=== PATIENT | female | born 1975 | race Caucasian/White ===

== ENCOUNTER 2017-05-07 14:25 | Emergency (ER) | payer MEDICAID, OTHER ==
[~2017-05-07] VITALS: Ht 157.5 cm; Wt 79.0 kg
[2017-05-07 14:32] VITALS: Ht 157.5 cm; Wt 79.0 kg
[2017-05-07] MEDS ORDERED: KETOROLAC 30 MG INJ IV STA (14:49)
[2017-05-07] MEDS ORDERED: ONDANSETRON 4 MG INJ IV STA (14:49)
[2017-05-07] MEDS ORDERED: SOD CHLORIDE 0.9% 1,000 ML IV STA (14:49)
[2017-05-07 15:07] LABS: ADD SCAN DIFF NO
[2017-05-07 15:13] LABS: BASOPHILS % 0.4 % (0.0-2.0); EOSINOPHILS # 0.2 10^3/ul (0.0-0.5); EOSINOPHILS % 3.4 % (0.0-7.0); HEMATOCRIT 35.4 % (37.0-47.0); LYMPHOCYTES # 2.7 10^3/ul (0.8-2.9); LYMPHOCYTES % 38.1 % (15.0-51.0); MEAN CORPUSCULAR HEMOGLOBIN 29.9 pg (29.0-33.0); MEAN CORPUSCULAR HGB CONC 33.9 g/dl (32.0-37.0); MEAN CORPUSCULAR VOLUME 88.1 fl (82.0-101.0); MEAN PLATELET VOLUME 9.9 fl (7.4-10.4); MONOCYTE # 0.6 10^3/ul (0.3-0.9); MONOCYTES % 8.3 % (0.0-11.0); NEUTROPHIL # 3.4 10^3/ul (1.6-7.5); NEUTROPHILS % 49.4 % (39.0-77.0); PLATELET COUNT 253 10^3/UL (140-415); RED BLOOD COUNT 4.02 10^6/ul (4.20-5.40); RED CELL DISTRIBUTION WIDTH 13.3 % (11.5-14.5)
--- NOTE | 2017-05-07 15:32 | RADRPT ---
PROCEDURE: Right upper quadrant abdominal ultrasound. CLINICAL INDICATION: Abdominal pain. TECHNIQUE: Multiple real-time longitudinal and transverse images of the right upper quadrant of th e abdomen were acquired utilizing a curved array transducer. Images were reviewed on a high-resoluti on PACS workstation. COMPARISON: None available. FINDINGS: There is normal size and echogenicity of the liver with no focal mass lesion identified . There is h epatopedal flow within the main portal vein. There is no gallbladder wall thickening, cholelithiasis , or pericholecystic fluid. There is no intra or extrahepatic biliary ductal dilatation. The common bile duct measures 2.6 mm in maximal dimension. The visualized portions of the pancreas are unremar kable. No free fluid is identified. The right kidney measures 10.3 cm in length and demonstrates normal echogenicity. There is a 2.3 cm cyst at the midportion of the right kidney. A smaller cyst is also seen at the upper pole right kid mann. There is no hydronephrosis, nephrolithiasis, or renal mass. IMPRESSION: 1. Unremarkable right upper quadrant ultrasound. A source of the patient's pain is not identified. 2. Benign right renal cysts. RPTAT: GG .Bryan Alexander MD, Date Time Electronically viewed and signed by .Bryan Alexander MD, MD on 05/07/2017 15:31 .P/
[2017-05-07 15:37] LABS: ADD UMIC YES; UR ASCORBIC ACID NEGATIVE (NEGATIVE); UR BACTERIA FEW /HPF (NONE SEEN); UR BILIRUBIN (Dip) NEGATIVE (NEGATIVE); UR BLOOD (Dip) 1+ mg/dL (NEGATIVE); UR CLARITY CLEAR (CLEAR); UR COLOR COLORLESS (YELLOW); UR GLUCOSE (Dip) NEGATIVE (NEGATIVE); UR KETONES (Dip) NEGATIVE (NEGATIVE); UR LEUKOCYTE ESTERASE (Dip) 1+ Leu/ul (NEGATIVE); UR NITRITE (Dip) NEGATIVE (NEGATIVE); UR RBC 1 /HPF (0-5); UR SPECIFIC GRAVITY (Dip) 1.004 (1.003-1.030); UR SQUAMOUS EPITHELIAL CELL FEW /HPF (FEW); UR TOTAL PROTEIN (Dip) NEGATIVE (NEGATIVE); UR UROBILINOGEN (Dip) NEGATIVE (NEGATIVE)
--- NOTE | 2017-05-07 15:48 | ERD ---
ER Documentation Chief Complaint Date/Time DATE: 05/07/17 TIME: 15:45 Chief Complaint ap x 2 days HPI Patient is a 41-year-old female presents emergency department with right sided abdominal pain 2 days. Patient states pain was initially intermittent nature however now it has become constant and sharp. Patient reports nausea however she denies any vomiting. She admits to chills however she denies any fevers. Patient denies any dysuria, frequency, hematuria, flank pain, rectal bleeding or diarrhea. Last menstrual period was on April 17, 2017. Last bowel movement was yesterday. Patient states she last ate this morning, a slice of bread. ROS All systems reviewed and are negative except as per history of present illness. Medications Home Meds Active Scripts Hydrocodone/Acetaminophen (Mclain 5-325 Tablet) 1 Each Tablet, 1 TAB PO Q6H Y for PAIN, #7 TAB Prov:BHAVANA HERRMANN PA-C 05/07/17 Ibuprofen* (Motrin*) 600 Mg Tab, 600 MG PO Q6, #20 TAB Prov:BHAVANA HERRMANN PA-C 05/07/17 Metronidazole* (Flagyl*) 500 Mg Tablet, 500 MG PO TID for 10 Days, TAB Prov:HBAVANA HERRMANN PA-C 05/07/17 Ciprofloxacin Hcl* (Ciprofloxacin Hcl*) 500 Mg Tablet, 500 MG PO BID for 10 Days , TAB Prov:BHAVANA HERRMANN PA-C 05/07/17 PMhx/Soc Medical and Surgical Hx: pt denies Medical Hx, pt denies Surgical Hx Hx Alcohol Use: No Hx Substance Use: No Hx Tobacco Use: No Smoking Status: Never smoker FmHx Family History: No diabetes Physical Exam Vitals Vital Signs Date Time Temp Pulse Resp B/P Pulse Ox O2 Delivery O2 Flow Rate FiO2 05/07/17 14:32 98.1 70 18 111/70 99 Physical Exam GENERAL: Well-developed, well-nourished female. Appears in no acute distress. HEAD: Normocephalic, atraumatic. EYES: Pupils are equally reactive bilaterally. EOMs grossly intact. No conjunctival erythema. ENT: Moist mucous membranes. No uvula deviation. No kissing tonsils. NECK: Supple. No meningismus. Normal range of motion of the neck. LUNG: Clear to auscultation bilaterally. No rhonchi, wheezing, rales or coarse breath sounds. HEART: Regular rate and rhythm. No murmurs, rubs or gallops. ABDOMEN: Soft and nondistended. Tender to palpation of the right upper quadrant and right lower quadrant. Positive guarding. Positive bowel sounds in all four quadrants. (-) McBurney's point tenderness. No CVA tenderness. BACK: No midline tenderness. EXTREMITIES: Equal pulses bilaterally. No peripheral clubbing, cyanosis or edema. No unilateral leg swelling. NEUROLOGIC: Alert and oriented. Moving all four extremities without any difficulty. Normal speech. Steady gait. SKIN: Normal color. Warm and dry. No rashes or lesions. Result Diagram: 05/07/17 1500 05/07/17 1500 Results 24 hrs Laboratory Tests Test 05/07/17 15:00 White Blood Count 7.010^3/ul Red Blood Count 4.0210^6/ul Hemoglobin 12.0g/dl Hematocrit 35.4% Mean Corpuscular Volume 88.1fl Mean Corpuscular Hemoglobin 29.9pg Mean Corpuscular Hemoglobin Concent 33.9g/dl Red Cell Distribution Width 13.3% Platelet Count 86840^3/UL Mean Platelet Volume 9.9fl Neutrophils % 49.4% Lymphocytes % 38.1% Monocytes % 8.3% Eosinophils % 3.4% Basophils % 0.4% Nucleated Red Blood Cells % 0.0/100WBC Neutrophils # 3.410^3/ul Lymphocytes # 2.710^3/ul Monocytes # 0.610^3/ul Eosinophils # 0.210^3/ul Basophils # 0.010^3/ul Nucleated Red Blood Cells # 0.010^3/ul Urine Color COLORLESS Urine Clarity CLEAR Urine pH 6.0 Urine Specific Kiana 1.004 Urine Ketones NEGATIVEmg/dL Urine Nitrite NEGATIVEmg/dL Urine Bilirubin NEGATIVEmg/dL Urine Urobilinogen NEGATIVEmg/dL Urine Leukocyte Esterase 1+Galen/ul Urine Microscopic RBC 1/HPF Urine Microscopic WBC 1/HPF Urine Squamous Epithelial Cells FEW/HPF Urine Bacteria FEW/HPF Urine Hemoglobin 1+mg/dL Urine Glucose NEGATIVEmg/dL Urine Total Protein NEGATIVEmg/dl Sodium Level 142mmol/L Potassium Level 4.0mmol/L Chloride Level 103mmol/L Carbon Dioxide Level 25mmol/L Anion Gap 18 Blood Urea Nitrogen 11mg/dl Creatinine 0.64mg/dl Glucose Level 86mg/dl Calcium Level 9.5mg/dl Total Bilirubin 0.1mg/dl Direct Bilirubin 0.00mg/dl Indirect Bilirubin 0.1mg/dl Aspartate Amino Transf (AST/SGOT) 22IU/L Alanine Aminotransferase (ALT/SGPT) 26IU/L Alkaline Phosphatase 85IU/L Total Protein 8.1g/dl Albumin 4.3g/dl Globulin 3.80g/dl Albumin/Globulin Ratio 1.13 Lipase 48U/L Current Medications Medications (Trade) Dose Ordered Sig/Darryn Route PRN Reason Start Time Stop Time Status Last Admin Dose Admin Sodium Chloride (NS) 1,000 ml @ 1,000 mls/hr Q1H STAT IV 05/07/17 14:49 05/07/17 15:48 DC 05/07/17 15:23 Ondansetron HCl (Zofran Inj) 4 mg ONCE STAT IV 05/07/17 14:49 05/07/17 14:52 DC 05/07/17 15:22 Ketorolac Tromethamine (Toradol) 30 mg ONCE STAT IV 05/07/17 14:49 05/07/17 14:52 DC 05/07/17 15:22 Procedures/MDM ED COURSE: The patient was stable throughout ED course. I kept the patient and/or family informed of laboratory and diagnostic imaging results throughout the ED course. DIAGNOSTIC IMAGING: Read by radiologist. Patient: RHETT JOYCE : 1975 Age: 41 Sex: F MR #: [id number] DOS: 05/07/17 1449 Ordering MD: BHAVANA HERRMANN PA-C Location: [facility] Room/Bed: PROCEDURE: Right upper quadrant abdominal ultrasound. CLINICAL INDICATION: Abdominal pain. TECHNIQUE: Multiple real-time longitudinal and transverse images of the right upper quadrant of the abdomen were acquired utilizing a curved array transducer. Images were reviewed on a high-resolution PACS workstation. COMPARISON: None available. FINDINGS: There is normal size and echogenicity of the liver with no focal mass lesion identified . There is hepatopedal flow within the main portal vein. There is no gallbladder wall thickening, cholelithiasis, or pericholecystic fluid. There is no intra or extrahepatic biliary ductal dilatation. The common bile duct measures 2.6 mm in maximal dimension. The visualized portions of the pancreas are unremarkable. No free fluid is identified. The right kidney measures 10.3 cm in length and demonstrates normal echogenicity. There is a 2.3 cm cyst at the midportion of the right kidney. A smaller cyst is also seen at the upper pole right kidney. There is no hydronephrosis, nephrolithiasis, or renal mass. IMPRESSION: 1. Unremarkable right upper quadrant ultrasound. A source of the patient's pain is not identified. 2. Benign right renal cysts. RPTAT: GG .Bryan Alexander MD, MD Date Time Electronically viewed and signed by .Bryan Alexander MD, MD on 05/07/2017 15:31 .P/ CC: BHAVANA HERRMANN PA-C Patient: RHETT JOYCE : 1975 Age: 41 Sex: F MR #: [id number] DOS: 05/07/17 1449 Ordering MD: BHAVANA HERRMANN PA-C Location: [facility] Room/Bed: PROCEDURE: CT abdomen and pelvis without IV contrast. CLINICAL INDICATION: Abdominal pain TECHNIQUE: CT scan of the abdomen and pelvis without contrast was performed on the [employer] volumetric [address] scanner. The patient was scanned without intravenous contrast. Coronal and sagittal reformatted images were obtained from the axial source images. The CTDI vol is 8.92 mGy and the DLP is 520.75 mGy -cm. COMPARISON: None. FINDINGS: CT abdomen: Mild dependent changes in the lung bases is seen. The remaining lung bases are clear. The heart size is not enlarged and is without pericardial thickening or effusion. The liver is normal in size and density and is without focal mass or intrahepatic biliary dilatation. The spleen is normal in size and homogeneous in density. The stomach is grossly unremarkable. The pancreas as visualized is normal. The gallbladder and biliary tree are unremarkable and there is no evidence for common bile duct dilatation. The adrenal glands are symmetric and normal. The kidneys are symmetrically unremarkable as well. Bilateral renal cysts are seen. 4 mm nonobstructing calculus is seen in the mid right kidney. No other renal calculus or obstructive uropathy or mass lesion is seen. The aorta is of normal in caliber. There is no retroperitoneal lymphadenopathy. The kaleb hepatis region is clear. The large bowel is stool- filled. A round structure is seen in the right lower quadrant mass. Measuring approximate 2.3 x 1.7 cm in size and demonstrates inflammatory changes in the surrounding mesentery. The small and large bowel and mesentery, as visualized, are otherwise unremarkable. The normal appendix is identified. CT pelvis: The pelvic organs are normal. The pelvic sidewalls and inguinal regions are clear. No pelvic mass, lymphadenopathy, or focal fluid collection is seen. A trace amount of free fluid in the pelvis is seen. No acute inflammation is seen. The urinary bladder is within normal limits. The surrounding osseous structures are unremarkable. No osteolytic or osteoblastic lesion is detected. IMPRESSION: 1. Focal inflammatory round structure in the right lower quadrant mesentery, questionable if this represents cecal diverticulitis. The possibility includes an omental infarct. Consider a follow up CT and pelvis with IV contrast as clinically warranted. 2. Trace amount of free fluid in the pelvis which may be physiologic. 3. Stool filled large bowel. 4. 4 mm nonobstructing right renal calculus. RPTAT: HPNM Results were discussed with Bhavana Herrmann Pa-c at 05/07/2017 4:49:55 PM Physician Ale Date Time Electronically viewed and signed by Physician Ale on 05/07/2017 16 :51 / CC: BHAVANA HERRMANN PA-C PROCEDURES: None. MEDICATIONS GIVEN: IV fluids, Toradol, Zofran Patient tolerated medication well with no adverse reactions. Patient reported improvement in pain. MEDICAL DECISION MAKING: This is a 41-year-old female who presents with right upper and lower quadrant pain 2 days. Patient states the pain was initially intermittent however now has become constant. Patient does report chills and nausea. She denied any fevers or vomiting.. Vital signs were reviewed. Patient is afebrile. CBC showed no evidence of systemic infection or severe anemia. CMP showed no evidence of electrolyte abnormalities, severe acidosis, alkalosis, renal failure , or liver disease. Lipase showed no evidence of acute pancreatitis. UA showed 1+ leukocyte esterase. Low suspicion for UTI given that patient denied any dysuria, hematuria, frequency or urgency. Gallbladder ultrasound was unremarkable. CT abdomen and pelvis showed 1. Focal inflammatory round structure in the right lower quadrant mesentery, questionable if this represents cecal diverticulitis. The possibility includes an omental infarct. Consider a follow up CT and pelvis with IV contrast as clinically warranted. 2. Trace amount of free fluid in the pelvis which may be physiologic. 3. Stool filled large bowel. 4. 4 mm nonobstructing right renal calculus. I discussed the patient's CT scan with my supervising physician Dr. Celestin. At this time, patient's presentation is most consistent with cecal diverticulitis versus omental infarct and nonobstructing right renal calculus. She did not have a white count. There is no indication for inpatient admission at this time. Patient did report alleviation of pain with Toradol. I have a much lower clinical concern for acute coronary syndrome, lower lobe pneumonia, DKA, small bowel obstruction, bowel perforation, cholecystitis, choledocholithiasis, ascending cholangitis, hepatic abscess, pancreatitis, UTI, pyelonephritis, nephrolithiasis, appendicitis, constipation, , ectopic . PRESCRIPTIONS: Ciprofloxacin, Flagyl, ibuprofen, Mclain DISCHARGE: At this time, patient is stable for discharge and outpatient management. Patient was provided with copy of all imaging studies obtained today as well as blood work. Patient was advised to follow-up with a GI specialist. Patient was advised to increase fiber intake. I have instructed the patient to follow- up with his/her primary care physician in 1-2 days. I have instructed the patient to promptly return to the ER at any time for any new or worsening symptoms including increased pain, nausea, vomiting, diarrhea, fever, weakness or LOC. The patient and/or family expressed understanding of and agreement with this plan. All questions were answered. Home care instructions were provided. 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 FURTHER EVALUATION AND TREATMENT OF YOUR CONDITION CAN WAIT UNTIL YOU ARE SEEN IN YOUR DOCTORS OFFICE WITHIN THE NEXT 1-2 DAYS. IT IS YOUR RESPONSIBILITY TO MAKE AN APPOINTMENT FOR FOLOW-UP CARE. IF YOU HAVE A PRIMARY DOCTOR --you should call your primary doctor and schedule an appointment IF YOU DO NOT HAVE A PRIMARY DOCTOR YOU CAN CALL OUR PHYSICIAN REFERRAL HOTLINE AT IF YOU CAN NOT AFFORD TO SEE A PHYSICIAN YOU CAN CHOSE FROM THE FOLLOWING [facility] [address] [facility]. [facility] [address] [facility] [facility] [address] [facility] [facility] [address] [facility]. [facility] [address] [facility]. [facility] [address] [facility]. [facility] YOU HAVE RECEIVED A MEDICAL SCREENING EXAM AND THE RESULTS INDICATE THAT YOU DO NOT HAVE A CONDITION THAT REQUIRES URGENT TREATMENT IN THE EMERGENCY DEPARTMENT. FURTHER EVALUATION AND TREATMENT OF YOUR CONDITION CAN WAIT UNTIL YOU ARE SEEN IN YOUR DOCTORS OFFICE WITHIN THE NEXT 1-2 DAYS. IT IS YOUR RESPONSIBILITY TO MAKE AN APPOINTMENT FOR FOLOW-UP CARE. IF YOU HAVE A PRIMARY DOCTOR --you should call your primary doctor and schedule and appointment IF YOU DO NOT HAVE A PRIMARY DOCTOR YOU CAN CALL OUR PHYSICIAN REFERRAL HOTLINE AT . IF YOU CAN NOT AFFORD TO SEE A PHYSICIAN YOU CAN CHOSE FROM THE FOLLOWING [facility] IN[facility]UTIONS: [facility] [address] [place] [address] [facility] [address] [place] [address] [facility] [address] [place] [address] Additional Instructions: Call your primary care doctor TOMORROW for an appointment during the next 1-2 days.See the doctor sooner or return here if your condition worsens before your appointment time. Take full course of antibiotics. Take pain medication as needed. BHAVANA HERRMANN PA-C May 07, 2017 15:48
[2017-05-07 15:59] LABS: ALBUMIN 4.3 g/dl (3.3-4.9); ALBUMIN/GLOBULIN RATIO 1.13; BILIRUBIN,INDIRECT 0.1 mg/dl (0-1.1); BILIRUBIN,TOTAL 0.1 mg/dl (0.2-1.3); CALCIUM 9.5 mg/dl (8.4-10.2); CREATININE 0.64 mg/dl (0.44-1.00); TOTAL PROTEIN 8.1 g/dl (6.1-8.1)
--- NOTE | 2017-05-07 16:52 | RADRPT ---
PROCEDURE: CT abdomen and pelvis without IV contrast. CLINICAL INDICATION: Abdominal pain TECHNIQUE: CT scan of the abdomen and pelvis without contrast was performed on the [employer] volumetric [address] scanner. The patient was scanned without intravenous contrast. Coronal and sagittal refo rmatted images were obtained from the axial source images. The CTDI vol is 8.92 mGy and the DLP is 5 20.75 mGy-cm. COMPARISON: None. FINDINGS: CT abdomen: Mild dependent changes in the lung bases is seen. The remaining lung bases are clear. The heart si ze is not enlarged and is without pericardial thickening or effusion. The liver is normal in size and density and is without focal mass or intrahepatic biliary dilatation . The spleen is normal in size and homogeneous in density. The stomach is grossly unremarkable. T he pancreas as visualized is normal. The gallbladder and biliary tree are unremarkable and there is no evidence for common bile duct dilatation. The adrenal glands are symmetric and normal. The kid neys are symmetrically unremarkable as well. Bilateral renal cysts are seen. 4 mm nonobstructing ca lculus is seen in the mid right kidney. No other renal calculus or obstructive uropathy or mass lesi on is seen. The aorta is of normal in caliber. There is no retroperitoneal lymphadenopathy. The kaleb hepatis region is clear. The large bowel is stool-filled. A round structure is seen in the right lower quad rant mass. Measuring approximate 2.3 x 1.7 cm in size and demonstrates inflammatory changes in the surrounding mesentery. The small and large bowel and mesentery, as visualized, are otherwise unremar kable. The normal appendix is identified. CT pelvis: The pelvic organs are normal. The pelvic sidewalls and inguinal regions are clear. No pelvic mass, lymphadenopathy, or focal fluid collection is seen. A trace amount of free fluid in the pelvis is seen. No acute inflammation is seen. The urinary bladder is within normal limits. The surrounding osseous structures are unremarkable. No osteolytic or osteoblastic lesion is detect ed. IMPRESSION: 1. Focal inflammatory round structure in the right lower quadrant mesentery, questionable if this r epresents cecal diverticulitis. The possibility includes an omental infarct. Consider a follow up CT and pelvis with IV contrast as clinically warranted. 2. Trace amount of free fluid in the pelvis which may be physiologic. 3. Stool filled large bowel. 4. 4 mm nonobstructing right renal calculus. RPTAT: HPNM Results were discussed with Liset Herrmann Pa-c at 05/07/2017 4:49:55 PM Dashawn Macdonald, Physician Date Time Electronically viewed and signed by Dashawn Macdonald, Physician on 05/07/2017 16:51 /
[2017-05-07] MEDS ORDERED: METR500T PO (17:14)
[2017-05-07] MEDS ORDERED: CIPR500T4 PO (17:14)
[2017-05-07] MEDS ORDERED: IBUP-1542 PO (17:15)
[2017-05-07] MEDS ORDERED: HYDR-906 PO (17:15)
== END 2017-05-07 17:46 | disposition home or self-care (01) ==
LOC: FTE 14:25
DX: K55.069 Acute infarction of intestine, part and extent unspecified (principal); K57.32 Diverticulitis of large intestine without perforation or abscess without bleeding; R11.0 Nausea
CPT/HCPCS: 36415; 74176; 76705; 80053; 81001; 83690; 85025; 96374; 96375; J1885; J2405; J7030; Z7502

== ENCOUNTER 2018-03-17 14:23 | Emergency (ER) | END 2018-03-17 18:08 | disposition home or self-care (01) ==